=== PATIENT | male | born 1960 | race Caucasian/White ===

== ENCOUNTER 2016-10-19 22:00 | Inpatient (IN) | payer OTHER ==
[~2016-10-19] VITALS: Ht 182.9 cm; Wt 96.6 kg
[2016-10-19 23:11] LABS: BASOPHIL % 0.4 % (0-2); PLATELET COUNT 214 x10^3mcL (130-400); RED CELL DISTRIBUTION WIDTH 13.1 % (11.5-14.5)
[2016-10-19 23:18] LABS: CALCIUM 9.5 mg/dL (8.5-10.1); CREATININE SERUM 1.8 mg/dL (0.7-1.3); POTASSIUM SERUM 3.5 mmol/L (3.5-5.1)
[2016-10-19 23:23] LABS: BILIRUBIN TOTAL 0.97 mg/dL (0.20-1.00); TOTAL PROTEIN, SERUM 8.1 g/dL (6.4-8.2)
[2016-10-19 23:24] LABS: ALBUMIN 2.9 g/dL (3.4-5.0)
[2016-10-20] VITALS (8 sets, daily range): BP systolic 102–148; BP diastolic 71–100
[2016-10-20 02:39] LABS: AMYLASE 29 U/L (25-115); LIPASE 73 IU/L (73-393)
[2016-10-20 02:43] LABS: T3 TOTAL 0.78 ng/mL
[2016-10-20 03:03] LABS: FREE T4 1.1 ng/dL (0.76-1.46); FREE THYROXINE INDEX 2.9 ug/dL (1.4-4.5); T4(THYROXINE) 8.1 ug/dL (4.7-13.3)
[2016-10-20 09:21] LABS: PLATELET COUNT 191 x10^3mcL (130-400); RED CELL DISTRIBUTION WIDTH 12.7 % (11.5-14.5)
[2016-10-20 09:37] LABS: CALCIUM 9.3 mg/dL (8.5-10.1); CARBON DIOXIDE 25.4 mmol/L (21-32); CREATININE SERUM 1.8 mg/dL (0.7-1.3); POTASSIUM SERUM 3.8 mmol/L (3.5-5.1)
[2016-10-20 12:23] LABS: AMPHETAMINE QUAL UR NONE DETECTED (NEG <=1000)
[2016-10-21 05:49] VITALS: BP 112/83
[2016-10-21 06:21] LABS: BASOPHIL % 0.5 % (0-2); PLATELET COUNT 215 x10^3mcL (130-400); RED CELL DISTRIBUTION WIDTH 13.5 % (11.5-14.5)
[2016-10-21 06:43] LABS: CALCIUM 9.5 mg/dL (8.5-10.1); CARBON DIOXIDE 24.2 mmol/L (21-32); CREATININE SERUM 1.7 mg/dL (0.7-1.3); POTASSIUM SERUM 3.7 mmol/L (3.5-5.1)
[2016-10-21 06:47] LABS: ALBUMIN 2.3 g/dL (3.4-5.0)
[2016-10-21 09:30] VITALS: BP 126/82
[2016-10-21 15:10] VITALS: BP 112/81
[2016-10-21 15:40] VITALS: BP 121/81
[2016-10-21] MEDS ORDERED: LEVAQUIN750 MG PO (16:32)
[2016-10-21] MEDS ORDERED: LAC PO (16:33)
[2016-10-21] MEDS ORDERED: GLUCOTROL5 MG PO (16:33)
[2016-10-21] MEDS ORDERED: TOR10 PO (17:40)
== END 2016-10-21 18:26 | disposition home or self-care (01) | DRG 139 ==
LOC: ED 22:00 → DU 23:55 → MU 10-21 07:09
PROVIDERS: Emergency Medicine; ADMIT Family Medicine
DX: J18.9 Pneumonia, unspecified organism (principal); J96.00 Acute respiratory failure, unspecified whether with hypoxia or hypercapnia; N17.0 Acute kidney failure with tubular necrosis; E11.65 Type 2 diabetes mellitus with hyperglycemia; I10 Essential (primary) hypertension; E78.5 Hyperlipidemia, unspecified; J44.1 Chronic obstructive pulmonary disease with (acute) exacerbation; D72.829 Elevated white blood cell count, unspecified; E87.3 Alkalosis; E43 Unspecified severe protein-calorie malnutrition; M62.50 Muscle wasting and atrophy, not elsewhere classified, unspecified site; Z68.25 Body mass index [BMI] 25.0-25.9, adult
CPT/HCPCS: 36600; 80307; 82962; 83880; 84439; 94150; J0132; J0456; J0696; J1885; J1940; J2270; J2405; J7030; J7050; J7613; J7620; J7644; Q0092